=== PATIENT | female | born 1995 | race Hispanic/Latino ===

== ENCOUNTER 2020-01-08 00:17 | Emergency (ER) | payer SELFPAY ==
[2020-01-08 02:40] LABS: #Eosinphils 0.1 thou/uL (0.0-0.7); #Lymphocytes 2.8 thou/uL (1.20-3.40); #Monocytes 0.6 thou/uL (0.11-0.59); #Neutrophils 3.9 thou/uL (1.40-6.50); %Basophils 0.4 % (0.0-1.0); %Eosinophils 0.8 % (0.0-10.0); %Lymphocytes 37.8 % (21.0-51.0); %Monocytes 7.8 % (0.0-10.0); %Neutrophils 53.2 % (42.0-75.0); Hemoglobin 14.2 g/dL (12.0-16.0); Mean Corpuscular HGB CONC 34.9 g/dL (32.0-36.0); Mean Corpuscular Hemoglobin 32.1 pg (27.0-31.0); Mean Corpuscular Volume 91.8 fL (78.0-98.0); Mean Platelet Volume 8.3 fL (7.4-10.4); Platelet Count 222 thou/uL (130-400); RBC Distribution Width 11.1 % (11.5-14.5); Red Blood Cell (RBC) Count 4.43 mill/uL (4.20-5.40); White Blood Cell (WBC) Count 7.3 thou/uL (4.8-10.8)
[2020-01-08 04:07] LABS: Bilirubin Negative (Negative); Blood, Urine Trace (Negative); Clarity Clear (Clear); Glucose, Urine (Dipstick) Normal (Negative); Ketone, Urine Negative (Negative); Leukocyte Negative Leu/uL (Negative); Nitrite Negative (Negative); Protein, Urine (Dipstick) Negative (Neg-Trace); RBC/HPF None Seen HPF (0-3); Specific Gravity, Urine 1.011 (1.002-1.036); Squamous Epithelial 0-3 HPF (0-3); Urobilinogen Normal mg/dL (Less than 2); WBC/HPF 0-3 HPF (0-3)
[2020-01-08 04:13] LABS: Bacteria/HPF 1+ HPF (None Seen)
--- NOTE | 2020-01-08 07:55 | ULT ---
US Pelvic Transvag W Doppler History: Confirm intrauterine Comparison: None. Findings: Real-time grayscale, color and spectral analysis of the pelvis was performed transabdominal and transvaginal approach. Impression: Although the technologist states is a possible twin , this is not definitively c onfirmed. pole measures 0.56 cm without heart tones. The technologist also measures a second 0.47 cm pole although this may reflect a abnormally thickened yolk sac wall. Possible de bris within the gestational sac. Overall findings are suspicious for, although not diagnostic of failure. Large adjacent perigestational hemorrhage measuring up to 2.5 cm. Close follow-up ultrasound and hCG is recommended.
[2020-01-10 15:02] LABS: Chlamydia by PCR Not Detected (NotDetected); GC by PCR Not Detected (NotDetected)
== END 2020-01-08 04:29 | disposition home or self-care (01) ==
LOC: ERS 00:17
DX: O20.0 Threatened abortion (principal); O20.8 Other hemorrhage in early pregnancy; O30.001 Twin pregnancy, unspecified number of placenta and unspecified number of amniotic sacs, first trimester
CPT/HCPCS: 36415; 76856; 81003; 81015; 84702; 85025; 86900; 86901; 87491; 87591

== ENCOUNTER 2020-01-12 21:32 | Emergency (ER) | payer SELFPAY ==
[2020-01-12 22:20] LABS: #Eosinphils 0.1 thou/uL (0.0-0.7); #Lymphocytes 2.7 thou/uL (1.20-3.40); #Monocytes 0.8 thou/uL (0.11-0.59); #Neutrophils 6.1 thou/uL (1.40-6.50); %Basophils 0.1 % (0.0-1.0); %Eosinophils 0.8 % (0.0-10.0); %Lymphocytes 27.7 % (21.0-51.0); %Monocytes 8.4 % (0.0-10.0); Hemoglobin 13.9 g/dL (12.0-16.0); Mean Corpuscular HGB CONC 35.2 g/dL (32.0-36.0); Mean Corpuscular Hemoglobin 32.7 pg (27.0-31.0); Mean Corpuscular Volume 92.9 fL (78.0-98.0); Mean Platelet Volume 8.4 fL (7.4-10.4); Platelet Count 215 thou/uL (130-400); RBC Distribution Width 11.1 % (11.5-14.5); Red Blood Cell (RBC) Count 4.25 mill/uL (4.20-5.40); White Blood Cell (WBC) Count 9.8 thou/uL (4.8-10.8)
--- NOTE | 2020-01-12 23:04 | ULT ---
ULTRASOUND PELVIC DOPPLER DUPLEX: DATE: 01/12/2020 10:45 PM HISTORY: 24-year-old female with first trimester vaginal bleeding and left pelvic pain TECHNIQUE: Transabdominal transducer used to visualize intrapelvic contents with grayscale, color-flow, and spec tral analysis. Endovaginal transducer not used. FINDINGS: The previously demonstrated intrauterine gestational sac that was located in the fundus, has migrated a distance of 5.5 cm caudally into the lower uterine segment. It is distorted. No embryonic pole is identified within it, but an endovaginal ultrasound was not performed (because o f the blood clot in the vaginal cavity). There is a new finding of a large 7.5 x 4.5 x 6.5 cm solid mass within the vaginal cavity, with heter ogeneously intermediate echogenicity, consistent with a large blood clot. No free fluid in the cul-de-sac. No ovarian enlargement. Blood flow demonstrated in bilateral ovaries. IMPRESSION: 1) first trimester intrauterine gestation in progress. 2) new large hematoma/blood clot within the vaginal cavity. 3) intrauterine gestational sac has migrated to lower uterine segment.
== END 2020-01-13 00:22 | disposition home or self-care (01) ==
LOC: ERS 21:32
DX: O03.4 Incomplete spontaneous abortion without complication (principal)
CPT/HCPCS: 36415; 76856; 84702; 85025; 93976

== ENCOUNTER 2020-11-03 08:49 | Outpatient (CLI) | payer OTHER | END 2020-11-03 08:50 | disposition home or self-care (01) | LOC: BICULT 08:49 | PROVIDERS: ATTEND Family Medicine | DX: Z34.82 Encounter for supervision of other normal pregnancy, second trimester (principal); Z3A.21 21 weeks gestation of pregnancy | CPT/HCPCS: 76805 ==

== ENCOUNTER 2022-06-27 07:32 | Outpatient (CLI) | payer OTHER | END 2022-06-27 07:33 | disposition home or self-care (01) | LOC: BICULT 07:32 | PROVIDERS: ATTEND Family Medicine | DX: O09.893 Supervision of other high risk pregnancies, third trimester (principal); Z3A.29 29 weeks gestation of pregnancy | CPT/HCPCS: 76805 ==